=== PATIENT | male | born 1950 | race Caucasian/White ===

== ENCOUNTER 2022-04-23 17:39 | Inpatient (IN) ==
[2022-04-23] MEDS ORDERED: Vancomycin (wt based) 1,000 MG VIAL IV STA (20:10)
[2022-04-23] MEDS ORDERED: Vancomycin 1,500 MG/265 ML IV.SOLN IVPB ONE (20:11)
[2022-04-23 20:42] LABS: Basophils % 0.3 %; Eosinophils # 0.3 K/mcL (0.0-0.6); Eosinophils % 1.8 %; Hematocrit 32.8 % (37.5-50.1); Hemoglobin 11.1 g/dL (12.9-16.9); Immature Granulocytes % 0.5 % (0-4); Lymphocytes # 1.8 K/mcL (0.6-4.6); Mean Corpuscular HGB Conc 33.8 g/dL (31.6-35.5); Mean Corpuscular Hemoglobin 31.2 pg (28.0-33.3); Mean Corpuscular Volume 92.1 fL (83.0-100.0); Mean Platelet Volume 10.2 fL (9.4-12.4); Monocytes # 1.5 K/mcL (0.0-1.3); Monocytes % 10.8 %; Neutrophils # 10.3 K/mcL (1.6-8.9); Platelet Count 228 K/mcL (140-400); Red Blood Count 3.56 M/mcL (4.19-5.50); Red Cell Distribution Width 13.6 % (11.5-14.5); Segmented Neutrophils % 73.6 %
[2022-04-23 21:01] LABS: Calcium 9.1 mg/dL (8.6-10.3); Potassium 4.6 mEq/L (3.5-5.1)
[2022-04-23] MEDS ORDERED: Ondansetron ODT 4 MG TAB.RAPDIS SL PRN (22:26)
[2022-04-23] MEDS ORDERED: Naloxone 0.4 MG/ML INJ IVP PRN (22:26)
[2022-04-23] MEDS ORDERED: Acetaminophen 325 MG TABLET PO PRN (22:26)
[2022-04-23] MEDS ORDERED: Melatonin 3 MG TABLET PO PRN (22:26)
[2022-04-23] MEDS ORDERED: Cefepime HCl 2,000 MG in 0.9 % Sodium Chloride Mini Bag 100 ML IVPB STA (22:29)
[2022-04-23] MEDS ORDERED: *HR* Dextrose 50 % in Water (Syg) 50 ML SYRINGE IVP PRN (22:31)
[2022-04-23] MEDS ORDERED: Dextrose Gel 15 GM/37.5 ML TUBE PO PRN ×2 (22:31)
[2022-04-23] MEDS ORDERED: D5% in Water 1,000 ML IVC PRN (22:31)
[2022-04-23] MEDS: 0.9 % Sodium Chloride 1,000 ML IVC SCH (23:28)
[2022-04-24] MEDS ORDERED: Insulin LISPRO 300 UNITS/3 ML VIAL SUBQ SCH ×2
[2022-04-24] MEDS: Insulin LISPRO 300 UNITS/3 ML VIAL SUBQ SCH ×4 (00:05→17:46)
[2022-04-24] MEDS: Vancomycin 1,500 MG/265 ML IV.SOLN IVPB SCH (08:10)
[2022-04-24 08:27] LABS: Hematocrit 28.8 % (37.5-50.1); Hemoglobin 9.8 g/dL (12.9-16.9); Mean Corpuscular Hemoglobin 31.5 pg (28.0-33.3); Mean Corpuscular Volume 92.6 fL (83.0-100.0); Mean Platelet Volume 10.4 fL (9.4-12.4); Platelet Count 217 K/mcL (140-400); Red Blood Count 3.11 M/mcL (4.19-5.50); Red Cell Distribution Width 13.5 % (11.5-14.5); White Blood Count 10.1 K/mcL (4.3-11.1)
[2022-04-24 08:45] LABS: Calcium 8.4 mg/dL (8.6-10.3); Magnesium 2.2 mg/dL (1.6-2.6); Phosphorous 4.2 mg/dL (2.7-4.5); Potassium 4.1 mEq/L (3.5-5.1)
[2022-04-24] MEDS ORDERED: Cefepime HCl 2,000 MG in 0.9 % Sodium Chloride 10 ML IVP SCH (09:00)
[2022-04-24] MEDS ORDERED: Gadolinium Contrast Agent (WT Based) IV PRN (10:24)
[2022-04-24] MEDS ORDERED: allopurinoL 100 MG TABLET PO SCH (11:30)
[2022-04-24 11:50] LABS: Estimated Average Glucose 157 mg/dl; Hemoglobin A1C 7.1 %
[2022-04-24] MEDS: amLODIPine 5 MG TABLET PO SCH (12:16)
[2022-04-24 15:55] LABS: % Iron Saturation 13 % (20-55); Iron 32 mcg/dL (65-175); Transferrin 179 mg/dL (203-362)
[2022-04-24 16:11] LABS: Ferritin 1159 ng/mL (20-250)
[2022-04-24 16:17] LABS: Folate 14.7 ng/mL (3.0-16.0)
[2022-04-24] MEDS: Cefepime HCl 2,000 MG in 0.9 % Sodium Chloride 10 ML IVP SCH (19:35)
[2022-04-24] MEDS: 0.9 % Sodium Chloride 1,000 ML IVC SCH (19:50)
[2022-04-25 03:11] LABS: Basophils % 0.4 %; Eosinophils # 0.5 K/mcL (0.0-0.6); Eosinophils % 5.1 %; Hematocrit 27.1 % (37.5-50.1); Hemoglobin 9.2 g/dL (12.9-16.9); Immature Granulocytes % 0.7 % (0-4); Lymphocytes # 2.1 K/mcL (0.6-4.6); Lymphocytes % 21.4 %; Mean Corpuscular HGB Conc 33.9 g/dL (31.6-35.5); Mean Corpuscular Hemoglobin 31.3 pg (28.0-33.3); Mean Corpuscular Volume 92.2 fL (83.0-100.0); Mean Platelet Volume 10.6 fL (9.4-12.4); Monocytes # 0.8 K/mcL (0.0-1.3); Monocytes % 8.6 %; Neutrophils # 6.1 K/mcL (1.6-8.9); Platelet Count 232 K/mcL (140-400); Red Blood Count 2.94 M/mcL (4.19-5.50); Red Cell Distribution Width 13.2 % (11.5-14.5); Segmented Neutrophils % 63.8 %; White Blood Count 9.6 K/mcL (4.3-11.1)
[2022-04-25 03:29] LABS: Calcium 8.2 mg/dL (8.6-10.3)
[2022-04-25] MEDS: Insulin LISPRO 300 UNITS/3 ML VIAL SUBQ SCH ×5 (05:43→21:45)
[2022-04-25] MEDS: Finasteride 5 MG TABLET PO SCH (08:28)
[2022-04-25] MEDS: amLODIPine 5 MG TABLET PO SCH (08:28)
[2022-04-25] MEDS: allopurinoL 100 MG TABLET PO SCH (08:28)
[2022-04-25] MEDS: Cefepime HCl 2,000 MG in 0.9 % Sodium Chloride 10 ML IVP SCH ×2 (08:29→20:09)
[2022-04-25] MEDS: Vancomycin 1,500 MG/265 ML IV.SOLN IVPB SCH (08:41)
[2022-04-25] MEDS ORDERED: Famotidine 20 MG TABLET PO SCH (09:00)
[2022-04-25] MEDS ORDERED: Vancomycin 1,000 MG, 0.9 % Sodium Chloride 1,000 ML IR ONE (12:00)
[2022-04-25] MEDS ORDERED: Lidocaine -MPF 2% 2 ML VIAL ONE (12:14)
[2022-04-25] MEDS ORDERED: *HR* FentaNYL (PF) 100 MCG/2 ML VIAL ONE (12:17)
[2022-04-25] MEDS ORDERED: Lidocaine -MPF 1% 5 ML AMPUL ONE (12:18)
[2022-04-26 03:53] LABS: Basophils % 0.5 %; Eosinophils # 0.5 K/mcL (0.0-0.6); Eosinophils % 6.1 %; Hematocrit 25.8 % (37.5-50.1); Hemoglobin 8.7 g/dL (12.9-16.9); Immature Granulocytes % 1.2 % (0-4); Lymphocytes # 2.2 K/mcL (0.6-4.6); Lymphocytes % 26.2 %; Mean Corpuscular HGB Conc 33.7 g/dL (31.6-35.5); Mean Corpuscular Volume 91.8 fL (83.0-100.0); Mean Platelet Volume 10.4 fL (9.4-12.4); Monocytes # 0.7 K/mcL (0.0-1.3); Monocytes % 8.7 %; Neutrophils # 4.7 K/mcL (1.6-8.9); Platelet Count 213 K/mcL (140-400); Red Blood Count 2.81 M/mcL (4.19-5.50); Red Cell Distribution Width 13.2 % (11.5-14.5); Segmented Neutrophils % 57.3 %; White Blood Count 8.2 K/mcL (4.3-11.1)
[2022-04-26 04:11] LABS: Calcium 8.1 mg/dL (8.6-10.3); Potassium 4.1 mEq/L (3.5-5.1)
[2022-04-26] MEDS ORDERED: Vancomycin 1,250 MG/262.5 ML IV.SOLN IVPB SCH (09:00)
[2022-04-26] MEDS: CeFAZolin 2,000 MG/120 ML BAG IVPB SCH ×2 (10:43→17:36)
[2022-04-26] MEDS: amLODIPine 5 MG TABLET PO SCH (10:44)
[2022-04-26] MEDS: Insulin LISPRO 300 UNITS/3 ML VIAL SUBQ SCH ×4 (10:44→20:29)
[2022-04-26] MEDS: allopurinoL 100 MG TABLET PO SCH (10:44)
[2022-04-26] MEDS: Insulin DETEMIR 100 UNIT/ML X5UNITS SUBQ SCH ×2 (10:44→20:27)
[2022-04-26] MEDS: Finasteride 5 MG TABLET PO SCH (10:44)
[2022-04-26] MEDS: Famotidine 20 MG TABLET PO SCH (10:44)
[2022-04-27] MEDS: CeFAZolin 2,000 MG/120 ML BAG IVPB SCH ×4 (00:20→23:27)
[2022-04-27 04:39] LABS: Basophils # 0.1 K/mcL (0.0-0.2); Basophils % 0.8 %; Eosinophils # 0.7 K/mcL (0.0-0.6); Eosinophils % 8.8 %; Hematocrit 25.9 % (37.5-50.1); Immature Granulocytes % 2.1 % (0-4); Lymphocytes # 2.4 K/mcL (0.6-4.6); Lymphocytes % 31.4 %; Mean Corpuscular HGB Conc 34.7 g/dL (31.6-35.5); Mean Corpuscular Hemoglobin 31.3 pg (28.0-33.3); Mean Corpuscular Volume 89.9 fL (83.0-100.0); Mean Platelet Volume 10.2 fL (9.4-12.4); Monocytes # 0.5 K/mcL (0.0-1.3); Monocytes % 6.1 %; Neutrophils # 3.8 K/mcL (1.6-8.9); Platelet Count 249 K/mcL (140-400); Red Blood Count 2.88 M/mcL (4.19-5.50); Red Cell Distribution Width 13.1 % (11.5-14.5); Segmented Neutrophils % 50.8 %; White Blood Count 7.5 K/mcL (4.3-11.1)
[2022-04-27 04:56] LABS: Calcium 8.3 mg/dL (8.6-10.3); Potassium 4.1 mEq/L (3.5-5.1)
[2022-04-27] MEDS: Insulin LISPRO 300 UNITS/3 ML VIAL SUBQ SCH ×4 (09:14→21:51)
[2022-04-27] MEDS: Insulin DETEMIR 100 UNIT/ML X5UNITS SUBQ SCH ×2 (09:14→21:44)
[2022-04-27] MEDS: Famotidine 20 MG TABLET PO SCH (09:17)
[2022-04-27] MEDS: amLODIPine 5 MG TABLET PO SCH (09:17)
[2022-04-27] MEDS: allopurinoL 100 MG TABLET PO SCH (09:17)
[2022-04-27] MEDS: Finasteride 5 MG TABLET PO SCH (09:17)
[2022-04-28 05:37] VITALS: BP 133/71; PULSE 70; TEMP 97.8; O2SAT 98
[2022-04-28] MEDS: amLODIPine 5 MG TABLET PO SCH (08:17)
[2022-04-28] MEDS: Insulin LISPRO 300 UNITS/3 ML VIAL SUBQ SCH ×2 (08:17→11:42)
[2022-04-28] MEDS: allopurinoL 100 MG TABLET PO SCH (08:18)
[2022-04-28] MEDS: Famotidine 20 MG TABLET PO SCH (08:18)
[2022-04-28] MEDS: Finasteride 5 MG TABLET PO SCH (08:18)
[2022-04-28] MEDS: CeFAZolin 2,000 MG/120 ML BAG IVPB SCH (08:21)
[2022-04-28] MEDS: Insulin DETEMIR 100 UNIT/ML X5UNITS SUBQ SCH (08:21)
== END 2022-04-28 14:27 | disposition home or self-care (01) | DRG 603 ==
LOC: 4WAOSI 17:39 → EMEROOARM 17:39 → SUATTDRO 22:23 → 4WAOSI 23:10 → SUATTDRO 04-24 13:16
PROVIDERS: ADMIT Internal Medicine; ATTEND Hospitalist